=== PATIENT | male | born 1965 | race Caucasian/White ===

== ENCOUNTER → 2024-06-06 | Outpatient (CLI) | payer OTHER ==
[~2024-06-06] MED LIST: ASPI81CH PO; CODGUAEL PO; MULVITB PO; OMEP20ER; RXTRAM50 PO; TRAM50 PO
[2024-06-06 10:40] LABS: BASOPHILS ABSOLUTE AUTO 0.05 K/mm3 (0.00-0.23); BASOPHILS PERCENT AUTO 1 % (0-2); EOSINOPHILS ABSOLUTE AUTO 0.18 K/mm3 (0.00-0.68); EOSINOPHILS PERCENT AUTO 2 % (0-6); Hematocrit 46.6 % (37.0-53.0); Hemoglobin 15.6 g/dL (13.5-17.5); IMMATURE GRAN ABSOLUTE AUTO 0.02 K/mm3 (0.00-0.10); IMMATURE GRAN PERCENT AUTO 0 % (0-1); LYMPHOCYTES ABSOLUTE AUTO 2.22 K/mm3 (0.84-5.20); LYMPHOCYTES PERCENT AUTO 28 % (21-46); MONOCYTES ABSOLUTE AUTO 0.66 K/mm3 (0.16-1.47); MONOCYTES PERCENT AUTO 9 % (4-13); Mean Corpuscular HGB 30.3 pg (26.0-34.0); Mean Corpuscular HGB Conc 33.5 g/dL (31.5-36.5); Mean Corpuscular Volume 91 fL (80-100); Mean Platelet Volume 9.9 fL (9.1-12.4); NEUTROPHILS ABSOLUTE AUTO 4.68 K/mm3 (1.96-9.15); NEUTROPHILS PERCENT AUTO 60 % (41-73); Platelet Count 325 K/mm3 (150-400); RDW Standard Deviation 43.1 fL (35.1-46.3); Red Blood Cell Count 5.15 M/mm3 (4.30-5.90); White Blood Cell Count 7.81 K/mm3 (4.00-11.30)
[2024-06-06 10:50] LABS: Bun/Creatinine Ratio 19.1 (12.0-20.0); Calcium, Blood 9.3 mg/dL (8.5-10.1); Creatinine, Blood 0.89 mg/dL (0.60-1.20); Potassium, Blood 4.4 mmol/L (3.5-5.5); Uric Acid, Blood 5.2 mg/dL (3.5-7.2)
== END | disposition home or self-care (01) ==
LOC: LAB SHORT 10:36
PROVIDERS: Emergency Medicine
DX: M79.89 Other specified soft tissue disorders (principal)
CPT/HCPCS: 80048; 84550; 85025

== ENCOUNTER 2024-08-14 08:25 | Day surgery (SDC) | payer OTHER ==
[~2024-08-14] VITALS: Ht 182.9 cm; Wt 94.2 kg
[~2024-08-14 08:25] MED LIST changes: +Bupivacaine 0.5% W/EPI 1:200000 SDV 30 ML Vial ONE; +Lactated Ringer's 1,000 ML IV ONE
[2024-08-14] MEDS ORDERED: CeFAZolin Sodium 2,000 MG VIAL ONE (08:45)
[2024-08-14] MEDS ORDERED: OLMESARTAN MEDO20 MG PO (08:52)
[2024-08-14] MEDS ORDERED: ATORVASTATIN CA20 MG PO (08:52)
[2024-08-14] MEDS ORDERED: SILDENAFIL CITR25 MG PO (08:53)
[2024-08-14] MEDS ORDERED: Lactated Ringer's 1,000 ML IV ONE ×2 (09:05→12:34)
[2024-08-14] MEDS ORDERED: Midazolam HCl 1MG / ML 2ML Vial ONE (10:56)
[2024-08-14] MEDS ORDERED: Dexmedetomidine HCL 200 MCG / 2 ML ONE (11:00)
[2024-08-14] MEDS ORDERED: propofoL 20 ML IV ONE (11:15)
[2024-08-14] MEDS ORDERED: FentaNYL Citrate 50 MCG/ML 2 ML Injection ONE (11:15)
[2024-08-14] MEDS ORDERED: Ondansetron HCl 2 MG / ML 2ML Vial ONE (11:22)
[2024-08-14] MEDS ORDERED: Dexamethasone Sod Phos 10 MG/ML 1ML VIAL ONE (11:22)
--- NOTE | 2024-08-14 11:22 | NUR ---
08/14/24 1122 Michelle Cisneros TIME OUT PERFORMED AT BEDSIDE WITH DR ORTEGA AT 1103 PRIOR TO START OF PREOP NERVE BLOCK. VERSED 2MG IV X 1 GIVEN AT 1104. PT PLACED ON 2L O2 VIA N/C. HR AND SPO2 MONITORED THROUGHOUT. POPLITEAL NERVE BLOCK STARTED AT 1107 AND ENDED AT 1109. SAPHENOUS NERVE BLOCK STARTED AT 1112 AND ENDED AT 1113. PT TOLERATED PROCEDURE WELL.
[2024-08-14] MEDS ORDERED: Phenylephrine HCl 100 MCG/ML-NS 10MLSYR (1MG/10ML) ONE ×2 (11:29→11:56)
--- NOTE | 2024-08-14 12:53 | NUR ---
08/14/24 1253 Junie Urias REPORT RECEIVED FROM [facility]
[2024-08-14 13:14] VITALS: BP 94/65
== END 2024-08-14 13:40 | disposition home or self-care (01) ==
LOC: ORSCSDS 08:25
PROVIDERS: Podiatrist Foot & Ankle Surgery
PROC: 0LXP0ZZ Transfer Left Lower Leg Tendon, Open Approach (ICD-10-PCS; principal; 2024-08-14 09:45)
PROC: 0MQR0ZZ Repair Left Ankle Bursa and Ligament, Open Approach (ICD-10-PCS; principal; 2024-08-14 09:45)
PROC: 0LQP0ZZ Repair Left Lower Leg Tendon, Open Approach (ICD-10-PCS; principal; 2024-08-14 09:45)
DX: M76.822 Posterior tibial tendinitis, left leg (principal); S93.402A Sprain of unspecified ligament of left ankle, initial encounter; I10 Essential (primary) hypertension; Z79.899 Other long term (current) drug therapy; K21.9 Gastro-esophageal reflux disease without esophagitis; E78.5 Hyperlipidemia, unspecified; Z79.82 Long term (current) use of aspirin
CPT/HCPCS: C1713; J0690; J1100; J2250; J2371; J2405; J2704; J3010; J7120